=== PATIENT | female | born 1955 | race Caucasian/White ===

== ENCOUNTER 2016-08-30 07:54 | Day surgery (SDC) | payer OTHER ==
[~2016-08-30] VITALS: Ht 165.1 cm; Wt 102.0 kg
[2016-08-30] VITALS (7 sets, daily range): BP systolic 111–142; BP diastolic 72–89; PULSE 75–102; RESP 14–20; O2SAT 92–100
[~2016-08-30 07:54] MED LIST: ACET325C PO; BUPR150T8 PO; CHOL100043 PO; CeFAZolin 2 Gm/50 mL D5W IV Premix IV ONE; DICL100G8 TP; IBUP200C PO; Lactated Ringer's 1,000 ML IV SCH; Lidocaine-Prilo 2.5-2.5% 30 Gm Cream TOPICAL ONE; NAPR250T PO
[2016-08-30] MEDS ORDERED: Lidocaine PF 1% 30 mL Inj ONE (07:55)
[2016-08-30] MEDS ORDERED: Propofol 10,000 mCg/mL 20 mL Inj ONE (07:55)
[2016-08-30] MEDS ORDERED: MetoCLOpramide 5 mg/mL 2 mL Inj ONE (07:55)
[2016-08-30] MEDS ORDERED: Dexamethasone 4 mg/mL Inj ONE (07:55)
[2016-08-30] MEDS ORDERED: Ondansetron 2 mg/mL 2 mL Inj ONE (07:55)
[2016-08-30] MEDS ORDERED: Lactated Ringer's 1,000 ML IV ONE (08:58)
--- NOTE | 2016-08-30 09:11 | PCM.HPANE ---
Patient Data Date of Service: Aug 30, 2016 Surgeon Admitting Provider: Attending Provider:Bel Stanford MD Primary Care Physician:Dean Monge MD Other Provider:Kza Garber Anesthesia Reason for Visit Left Kidney Stone Ht/WT & BMI Height (Feet): 5 Height (Inches): 5 Weight (Kilograms): 101.96 Body Mass Index 37.00 Allergies Coded Allergies: ciprofloxacin (Verified Allergy, Intermediate, JOINT PAIN, 04/26/16) Uncoded Allergies: SULFA (Allergy, Severe, rash, 04/25/16) Past Anesthesia History Anesthesia History: Denies:: Anesthesia Reactions, Malignant Hyperthermia Diabetes History Hx Diabetes?: No MRSA MRSA: No Medications Hypertension Medication: No Home Meds Incl Beta Chan: No Reported Medications Bupropion ER (Wellbutrin SR)150 Mg Tablet.er75 Mg PO TID Ref 0 04/25/16 Diclofenac Gel (Voltaren Gel)100 Gm Tube1 Applic TP QID PRN prn #1 TUBE 1% 04/25/16 Cholecalciferol (Vitamin D3) (Vitamin D)1,000 Unit Tablet5,000 Unit PO DAILY #1 BOTTLE Ref 0 04/25/16 Acetaminophen 325 Mg [id number] Mg PO Q4H PRN prn 04/25/16 Naproxen 250 Mg [id number] Mg PO BID PRN For Pain Ref 0 04/25/16 Ibuprofen 200 Mg [id number] Mg PO QID PRN For Pain Ref 0 04/25/16 History History of ENT Problems?: No Hx of Heart Problems?: No Cardiovascular History: Denies:: Chest Pain Hypertension Hx of Respiratory Problem?: No Respiratory History: Denies:: Oxygen Administration Use of C-PAP Machine Hx Neurologic Problems?: Yes Neurological History: Positive for:: Dizziness (POSITIONAL DIZZINESS) Headaches (VESTIBULAR) Denies:: CVA Multiple Sclerosis Parkinson's Disease Seizures Hx of GI Problems?: No Hx of Problems?: Yes Genitourinary History: Positive for:: Kidney Stones (lt ureteral stone= current problem s/p eswl,cysto/stent) Other Pertinent History: hx of prior eswl here 04/2016 Female Hx: Denies:: Currently Skin History: Denies:: History Skin Disorders? Pressure Ulcers Hx Musculoskeletal Problems?: Yes Musculoskeletal History: Positive for:: Osteoarthritis (thumb) Hx of Psycho/Social Problems?: Yes Psycho Social History: Positive for:: Anxiety Hx Depression Hx Surgeries?: Yes (CYSTO/STENT/ESWL) Hx Any Other Health Problems?: Yes Other History: Positive for:: Thyroid Disease (HX OF) Denies:: Cancer Hospitalization Hx Diabetes: No Hx Alcohol Use: Yes (RARE)Hx Substance Use: No Smoking Status: Never Smoker Have You Smoked inLast 12 mo: No Stop/Bang S-Snoring: Do You Snore Loudly: No T-Tired: feel tired, fatigued: No O-Obsered: Observed not breath: No P-Blood Pressure: treated: No B- Body Mass Index > 35 kg/m2: Yes A- Age over 50: Yes N- Neck Large Circumference: No G- Gender Male: No JANI Total Score: 2 JANI Risk Assessment: Low Risk, <3 Yes Risk Assessment Category Category 1A: Patient has history of documented sleep apnea, and HAS NOT received any narcotic, sedative or anesthesia administration during this stay. Category 1B: Patient has history of documented sleep apnea, and HAS received any narcotic , sedative or anesthesia administration during this stay Category 2: Patient has SUSPECTED Obstructive Sleep Apnea, and HAS received any narcotic , sedative or anesthesia administration during this stay. Category 3: Patient has SUSPECTED Obstructive Sleep Apnea and HAS NOT received narcotic, sedative or anesthesia administration during this stay. Category 4: Outpatient in Procedural Areas with known sleep apnea or who screen positive for High Risk via the STOP/BANG questionnaire. Exam Exam Vital Signs Vital Signs Date Time Temp Pulse Resp B/P Pulse Ox O2 Delivery O2 Flow Rate FiO2 08/30/16 09:00 36.3 90 20 129/89 94 Room Air General Appearance: Alert, Oriented X3, Cooperative, No Acute Distress HEENT/AIRWAY: MP 2, Neck Movement (short, thick, from), Mouth Opening (3), Other (TMD3, significatn >1cm overbite) Lungs: Clear to Auscultation Heart: Exam Unremarkable, Regular Rate/Rhythm, Normal S1, Normal S2, No Murmurs /Rubs/Gallops Meds/Labs/Diagnostics Admission Meds Current Medications Lactated Ringer's (Lr) 1,000 ml @ ud STK-MED ONCE IV Last administered on 08/30t 08:58; Start 08/30/16 at 08:58; Stop 08/30/16 at 08:59; Status DC Plan Impression Patient chart reviewed, patient interviewed and anesthestic plan with risks, benefits, and alternatives discussed, and informed consent obtained. NPO Status: 0600 SIPS WITH MEDS ASA Physical Status: ASA2 Mod Systemic Disease Anesthetic Plan: GA Bene/Risks/Altern/Consents: Yes HP Complete Prior to Induction: Yes Gustabo Escalante MD Aug 30, 2016 09:10
[2016-08-30] MEDS ORDERED: Lactated Ringer's 1,000 ML IV SCH (10:15)
[2016-08-30] MEDS ORDERED: Dexamethasone 4 mg/mL Inj IVPUSH PRN (10:15)
[2016-08-30] MEDS ORDERED: Phenylephrine 10,000 mCg/mL Inj IVPUSH PRN (10:15)
[2016-08-30] MEDS ORDERED: EPHEDrine Sulfate 50 mg/mL Inj IVPUSH PRN (10:15)
[2016-08-30] MEDS ORDERED: Lactated Ringer's 500 ML IV PRN (10:15)
[2016-08-30] MEDS ORDERED: Ondansetron 2 mg/mL 2 mL Inj IVPUSH PRN (10:15)
[2016-08-30] MEDS ORDERED: MetoCLOpramide 5 mg/mL 2 mL Inj IVPUSH PRN (10:15)
[2016-08-30] MEDS ORDERED: HYDROmorphone 1 mg/mL Inj IVPUSH PRN (10:15)
[2016-08-30] MEDS ORDERED: fentaNYL-PF 50 mCg/mL 2 mL Inj IVPUSH PRN (10:15)
--- NOTE | 2016-08-30 10:19 | DRSVH ---
PROCEDURE: X-RAY KUB ([id number]) INDICATIONS: LEFT KIDNEY STONE TECHNIQUE: One view of the abdomen acquired. COMPARISON: [facility], CR, XR KUB, 08/20/2016, 14:14. FINDINGS: Surgical changes and devices: None. Bowel: Bowel gas pattern is normal. Soft tissues: 1.1 cm calcification again seen projected over the lower pole of the left kidney. Mult iple pelvic calcifications redemonstrated likely phleboliths. Bones: No suspicious bony lesions. IMPRESSION: Left renal calcification unchanged. Dictated by: Ryan Gupta RRA Interpreted: Yamilka Deleon MD on 08/30/2016 at 10:18 Transcribed by: VERONA on 08/30/2016 at 10:19 Approved by: Yamilka Deleon MD, PhD on 08/30/2016 at 17:27
[2016-08-30 10:40] LABS: APPEARANCE,URINE HAZY (CLEAR,HAZY); COLOR,URINE STRAW (YELLOW); OCCULT BLOOD,URINE SMALL (NEGATIVE); UROBILINOGEN,URINE NORMAL (NORMAL)
[2016-08-30] MEDS ORDERED: Ondansetron 8 mg ODT Tablet PO PRN (10:45)
[2016-08-30] MEDS ORDERED: HYDROcodone-APAP 5-325 mg Tablet PO PRN (10:45)
[2016-08-30] MEDS ORDERED: EPHEDrine/NS 5 mg/mL 5 mL Syringe ONE (11:38)
[2016-08-30] MEDS ORDERED: hydrOXYzine Inj 25 MG/1 mL SDV IM PRN (11:40)
[2016-08-30] MEDS ORDERED: EPHEDrine Sulfate 50 mg/mL Inj IM PRN (11:40)
--- NOTE | 2016-08-30 14:21 | PCM.ANEP1 ---
Post Anesthesia Phase 1 PACU Phase 1 Assessment Date of Service: Aug 30, 2016 Vital Signs Vital Signs Date Time Temp Pulse Resp B/P Pulse Ox O2 Delivery O2 Flow Rate FiO2 08/30/16 12:49 98 18 142/87 100 Room Air 08/30/16 11:30 96 18 97 Nasal Cannula 2 08/30/16 11:15 78 14 111/72 96 Nasal Cannula 2 08/30/16 10:55 75 14 128/78 92 Nasal Cannula 2 08/30/16 10:50 102 15 128/75 93 Nasal Cannula 2 08/30/16 10:43 36.1 81 14 135/77 96 Simple Mask 10 08/30/16 09:00 36.3 90 20 129/89 94 Room Air Level of Alertness: Awake, talking CHAPA's with Equal Strength: Yes Pain: No Pain Scale Score: 0 Nausea or Vomiting: No Oxygen Delivery: Simple Mask Lungs: Clear to Auscultation Gustabo Escalante MD Aug 30, 2016 14:21
--- NOTE | 2016-08-30 14:22 | PCM.ANEP2 ---
Post Anesthesia Evaluation ASA/CMS Post Anesthesia VS in Patient's Normal Range?: Yes Resp Stable; Airway Patent?: Yes CV Function & Hydration Stable: Yes Mental Status Recovered?: Yes Pain control Satisfactory?: Yes N/V Control Satisfactory?: Yes Gustabo Escalante MD Aug 30, 2016 14:21
--- NOTE | 2016-08-30 19:46 | OP ---
[address] [address] OPERATIVE REPORT PATIENT: CANDACE BULLARD : 1955 MR#: [id number] ADMIT: 08/30/2016 JOB ID: [id number] DATE OF SURGERY: 08/30/2016 SURGEON: Bel Stanford MD PROCEDURE: Left-sided shockwave lithotripsy, extracorporeal. ANESTHESIA: General, Dr. Escalante. PREOPERATIVE DIAGNOSIS(ES): Left-sided nonobstructing renal calculus. POSTOPERATIVE DIAGNOSIS(ES): Left-sided nonobstructing renal calculus. INDICATIONS: The patient is a 61-year-old with a history of nephrolithiasis electing shockwave lithotripsy as treatment for her nonobstructing greater than 1 cm stone. PROCEDURE IN DETAIL: After appropriate informed consent was obtained, the patient was brought to the operating room. Adequate general anesthesia was induced. SCDs were placed. She was made comfortable in the supine position. All pressure points were carefully padded. The fluoroscope was brought in. The left-sided nonobstructing renal calculus was readily visible. This was targeted and treated ultimately with 2000 shocks. There was a pause after the first 200. The power level used was four, escalating to nine. Rate was 60 initially, escalating to 90 as the stone appeared to be breaking up very nicely. Breakup was very good, with considerable haziness to the stone itself at the termination of the procedure, and spread. Skin condition was good. She was awakened and taken in stable condition to the postanesthesia care unit.
== END 2016-08-30 23:59 | disposition home or self-care (01) ==
LOC: SAS 07:54
PROVIDERS: ATTEND Urology
DX: N20.0 Calculus of kidney (principal); F41.9 Anxiety disorder, unspecified; F32.9 Major depressive disorder, single episode, unspecified; M19.049 Primary osteoarthritis, unspecified hand; Z79.899 Other long term (current) drug therapy
CPT/HCPCS: 50590; 74000; 81000; J1100; J2250; J2405; J2765; J3410; J7120